=== PATIENT | female | born 1950 | race Caucasian/White ===

== ENCOUNTER 2016-08-03 10:00 | Outpatient (CLI) | payer OTHER ==
--- NOTE | 2016-08-03 12:36 | DIAGNOSTIC IMAGING REPORT ---
REFERRING PHYSICIAN/PROVIDER: Sundeep Morales MD [employer] ARCHITECT: Darren Reyes MD PROCEDURE: M-mode 2D echocardiography with spectral and color flow Doppler TECHNICAL QUALITY: The study quality was technically difficult. INDICATION: RACING HEART BEAT,IRREGULAR HEART BEAT RHYTHM DURING PROCEDURE: The patient was in normal sinus rhythm during the exam. INTERPRETATIONS: Left Ventricle: The left ventricle is grossly normal size. There is no ventricular septal defect visualized. The left ventricular ejection fraction is grossly normal. Regional wall motion abnormalities cannot be excluded due to limited visualization. Assessment of diastolic parameters indicates normal left ventricular diastolic function and normal filling pressures. Right Ventricle: The right ventricle grossly appears normal in size with probable normal systolic function. Atria: The interatrial septum is intact with no evidence for an atrial septal defect. Mitral Valve: The mitral valve is not well visualized. The mitral valve is grossly normal. There is no mitral regurgitation noted. Aortic Valve: The aortic valve is not well visualized. There is no aortic regurgitation. Tricuspid Valve: The tricuspid valve is not well visualized. No tricuspid regurgitation. Great Vessels: The aortic root is normal size. The IVC is of normal diameter and collapses greater than 50% with a sniff. This suggests a low right atrial pressure of 3 mm Hg. IMPRESSION: The left ventricle is grossly normal size. The left ventricular ejection fraction is grossly normal. Regional wall motion abnormalities cannot be excluded due to limited visualization. The right ventricle grossly appears normal in size with probable normal systolic function. The aortic root is normal size.
== END 2016-08-03 23:00 ==
LOC: US SRH 10:00
DX: R00.0 Tachycardia, unspecified (principal); I49.9 Cardiac arrhythmia, unspecified

== ENCOUNTER 2016-08-17 08:41 | Outpatient (CLI) | payer OTHER | END 2016-08-17 23:00 | LOC: LAB SRH 08:41 | DX: F41.9 Anxiety disorder, unspecified (principal) | CPT/HCPCS: 90047; 90074; 93140; 95059 ==